=== PATIENT | female | born 1970 | race Caucasian/White ===

== ENCOUNTER 2021-03-02 08:32 | Outpatient (CLI) | payer BC | END 2021-03-02 08:33 | disposition home or self-care (01) | LOC: CTENTCT 08:32 | PROVIDERS: ATTEND Specialist | DX: J32.9 Chronic sinusitis, unspecified (principal) | CPT/HCPCS: 70486 ==

== ENCOUNTER 2021-03-28 10:04 | Outpatient (CLI) | payer BC ==
[2021-03-29 00:31] LABS: SARS-CoV-2 PCR by NAA Not Detected (NotDetected)
== END 2021-03-28 10:05 | disposition home or self-care (01) ==
LOC: LABBT 10:04
PROVIDERS: ATTEND Specialist
DX: Z01.812 Encounter for preprocedural laboratory examination (principal); J32.9 Chronic sinusitis, unspecified; J30.9 Allergic rhinitis, unspecified; J33.9 Nasal polyp, unspecified; J34.2 Deviated nasal septum; J34.3 Hypertrophy of nasal turbinates; Z20.822 Contact with and (suspected) exposure to COVID-19
CPT/HCPCS: 85014; U0003; U0005

== ENCOUNTER 2021-03-31 08:06 | Day surgery (SDC) | payer BC ==
[2021-03-30 11:01] VITALS: BMI 27.6
[2021-03-31] MEDS ORDERED: AFRIN NASAL MIST 15 ML BOT ONE ×2 (08:19→08:49)
[2021-03-31] MEDS ORDERED: Bacitracin Zinc Ointment 30 gm TUBE ONE (08:49)
[2021-03-31] MEDS ORDERED: Lidocaine 1% w/Epinephrine 1:100K 20 ML VIAL ONE (08:49)
[2021-03-31] MEDS ORDERED: Fentanyl 100 MCG/2 ML VIAL ONE ×2 (09:00→11:36)
[2021-03-31] MEDS ORDERED: Lidocaine 1% PF 5 ML VIAL ONE (09:26)
[2021-03-31] MEDS ORDERED: Rocuronium Bromide 10 MG/ML (10ML VIAL) ONE (09:26)
[2021-03-31] MEDS ORDERED: Dexamethasone 20 MG/5 ML VIAL ONE (09:26)
[2021-03-31] MEDS ORDERED: PROPOFOL 200 MG/20 ML VIAL ONE (09:26)
[2021-03-31] MEDS ORDERED: Ondansetron PF 4 MG/2 ML Vial ONE (09:26)
[2021-03-31] MEDS ORDERED: methylPREDNISolone Acetate 40 mg/ml Vial ONE (09:44)
[2021-03-31] MEDS ORDERED: Triamcinolone 40 MG/ML VIAL ONE (10:36)
[2021-03-31] MEDS ORDERED: Promethazine HCl 25 MG/ML VIAL ONE (11:05)
== END 2021-03-31 13:20 | disposition home or self-care (01) ==
LOC: SDC 08:06
PROVIDERS: ATTEND Specialist
PROC: 09BU8ZZ Excision of Right Ethmoid Sinus, Via Natural or Artificial Opening Endoscopic (ICD-10-PCS; principal; 2021-03-31)
PROC: 09BK8ZZ Excision of Nasal Mucosa and Soft Tissue, Via Natural or Artificial Opening Endoscopic (ICD-10-PCS; principal; 2021-03-31)
PROC: 8E09XBZ Computer Assisted Procedure of Head and Neck Region (ICD-10-PCS; principal; 2021-03-31)
PROC: 09BS8ZZ Excision of Right Frontal Sinus, Via Natural or Artificial Opening Endoscopic (ICD-10-PCS; principal; 2021-03-31)
PROC: 099Q8ZZ Drainage of Right Maxillary Sinus, Via Natural or Artificial Opening Endoscopic (ICD-10-PCS; principal; 2021-03-31)
PROC: 099R8ZZ Drainage of Left Maxillary Sinus, Via Natural or Artificial Opening Endoscopic (ICD-10-PCS; principal; 2021-03-31)
PROC: 09CW8ZZ Extirpation of Matter from Right Sphenoid Sinus, Via Natural or Artificial Opening Endoscopic (ICD-10-PCS; principal; 2021-03-31)
PROC: 09BV8ZZ Excision of Left Ethmoid Sinus, Via Natural or Artificial Opening Endoscopic (ICD-10-PCS; principal; 2021-03-31)
PROC: 09CX8ZZ Extirpation of Matter from Left Sphenoid Sinus, Via Natural or Artificial Opening Endoscopic (ICD-10-PCS; principal; 2021-03-31)
PROC: 09BT8ZZ Excision of Left Frontal Sinus, Via Natural or Artificial Opening Endoscopic (ICD-10-PCS; principal; 2021-03-31)
PROC: 09BL8ZZ Excision of Nasal Turbinate, Via Natural or Artificial Opening Endoscopic (ICD-10-PCS; principal; 2021-03-31)
DX: J32.4 Chronic pansinusitis (principal); J33.0 Polyp of nasal cavity; J34.2 Deviated nasal septum; J34.3 Hypertrophy of nasal turbinates; Z79.899 Other long term (current) drug therapy; Z88.8 Allergy status to other drugs, medicaments and biological substances; Z91.018 Allergy to other foods
CPT/HCPCS: J1100; J2405; J2550; J2704; J2920; J3010; J3301